=== PATIENT | male | born 1990 | race Caucasian/White ===

== ENCOUNTER 2019-05-04 07:43 | Outpatient (CLI) | payer BC ==
--- NOTE | 2019-05-04 10:57 | MRI ---
MRI LEFT KNEE PERFORMED WITHOUT CONTRAST ENHANCEMENT: Date: 05/04/2019 HISTORY: Twisted knee on 04/26/2019. FINDINGS: There is a complete proximal ACL tear present. The posterior cruciate ligament is intact. Medial meniscus is normal in shape and appearance. There is a more radially oriented tear extending t hrough the posterior horn of the medial meniscus. This is more of an obliquely oriented radial tear. There is some minimal meniscal subluxation. Tear appears to extend to the peripheral red zone and is near the level of the meniscal root. There are edema changes superficial and deep to the MCL. There is a complete tear of some of the ante rior most superficial fibers extending anterior as more of a capsular tear. The edema change in the d eep portion of the MCL is associated with a tear of the meniscal femoral ligament. Meniscal tibial li gament is intact. Lateral collateral ligament is intact. There is a nondisplaced fibular head fracture and bone contusi on of the adjacent tibia. This is associated with edema change in the region of the MPFL, but this ap pears to be intact. Posterior tibial bone contusions are seen, as well as the typical lateral femoral condyle contusion. IMPRESSION: 1. Complete proximal ACL tear. 2. Large radially oriented tear through the posterior horn of the lateral meniscus near the meniscal root. The root component of this tear is displaced somewhat superiorly. There is a focal 4-5 mm near full thickness chondral defect in the posterior articular surface of the lateral femoral condyle ass ociated with this. 3. Edema changes and a tear of the far anterior fibers of the superficial portion of the MCL extendi ng into the medial patellar retinaculum or medial capsule region. Edema changes deep to the MCL are s een and there is a meniscal femoral ligament tear. Meniscal tibial ligament is intact. 4. Fibular head fracture. POS: TPC
== END 2019-05-04 07:44 | disposition home or self-care (01) ==
LOC: TBSIIMAG 07:43 → EDBD 08:00
PROVIDERS: ATTEND Orthopaedic Surgery
DX: M23.92 Unspecified internal derangement of left knee (principal); S83.512A Sprain of anterior cruciate ligament of left knee, initial encounter; S83.412A Sprain of medial collateral ligament of left knee, initial encounter; S83.282A Other tear of lateral meniscus, current injury, left knee, initial encounter; R60.0 Localized edema; S82.832A Other fracture of upper and lower end of left fibula, initial encounter for closed fracture

== ENCOUNTER 2019-06-06 05:48 | Observation (INO) | payer BC ==
[2019-06-05 08:41] VITALS: BMI 31.4
[2019-06-06] MEDS ORDERED: Midazolam HCl 2 mg/2 ml Vial ONE ×2 (06:40→07:50)
[2019-06-06] MEDS ORDERED: Fentanyl 100 MCG/2 ML VIAL ONE ×4 (06:40→10:19)
[2019-06-06] MEDS ORDERED: Dexamethasone 4 mg/ml Vial ONE (06:59)
[2019-06-06] MEDS ORDERED: Morphine 4 MG/ML VIAL SLOW IVP PRN (07:53)
[2019-06-06] MEDS ORDERED: Milk Of Magnesia 30 ML UDCUP PO PRN (07:53)
[2019-06-06] MEDS ORDERED: Morphine 2 MG/ML SYRINGE SLOW IVP PRN (07:53)
[2019-06-06] MEDS ORDERED: Ondansetron PF 4 MG/2 ML Vial IVP PRN (07:53)
[2019-06-06] MEDS ORDERED: Methocarbamol 500 MG TAB PO PRN (07:53)
[2019-06-06] MEDS ORDERED: HYDROcodone/Acetaminophen 7.5/325 mg Tablet PO PRN (07:53)
[2019-06-06] MEDS ORDERED: traMADol HCl 50 MG TAB PO PRN (07:53)
[2019-06-06] MEDS ORDERED: diphenhydrAMINE 50 MG CAP PO PRN (07:53)
[2019-06-06] MEDS ORDERED: Bisacodyl 10 MG SUPP PR PRN (07:53)
[2019-06-06] MEDS ORDERED: Acetaminophen 500 MG TAB PO PRN (07:53)
[2019-06-06] MEDS ORDERED: Meperidine HCl/PF 25 MG/ML VIAL ONE (09:39)
[2019-06-06] MEDS ORDERED: Labetalol HCl 100 MG/20 ML VIAL ONE (09:44)
--- NOTE | 2019-06-06 10:39 | OP ---
DATE OF PROCEDURE: 06/06/2019 PREOPERATIVE DIAGNOSES: Left knee anterior cruciate ligament tear and lateral meniscus tear. POSTOPERATIVE DIAGNOSES: Left knee anterior cruciate ligament tear and lateral meniscus tear. PROCEDURES PERFORMED: 1. Left knee exam under anesthesia. 2. Left knee arthroscopy with partial lateral meniscectomy. 3. Arthroscopically assisted anterior cruciate ligament reconstruction using autologous patellar tendon graft. WAXER OPERATOR: Les Rajput PA-C ESTIMATED BLOOD LOSS: Minimal. COMPLICATIONS: None. ANESTHESIA: The patient did have a general anesthetic as well as a preoperative block. DISPOSITION: He went to recovery room in stable condition. IMPLANTS: 7 x 25 metal interference screw on the femur. We used a bicortical screw with a smooth washer on the tibia. INDICATIONS: This is a 28-year-old male, [facility] [place] and was found to have an ACL tear, significant bruising, some damage to his femoral condyle on the lateral side and a lateral meniscus tear. At this time, he opted to have surgery. DESCRIPTION OF PROCEDURE: After all appropriate consent forms were explained and signed, he was taken to the operative time and at this time was given general anesthetic. Once the level of anesthesia was appropriate, the patient had an exam under anesthesia, confirmed a positive Marbella's and positive pivot shift. He was stable to varus and valgus and a negative posterior drawer. At this time, tourniquet was placed on left thigh. Leg was then placed in arthroscopic leg harding. The limb was then prepped and draped in standard surgical fashion. The limb was then exsanguinated, tourniquet was taken up to 300 mmHg. A 10 blade was used to incise down through skin. Bovie was used to coagulate any brisk venous bleeding. New blade was used to take the paratenon off the underlying patellar tendon and at this time, a central third patellar tendon graft was harvested using a double 10 blade saw and osteotome. This was taken to the back table and made so that both bone plugs were size 10. The graft site was closed loosely with multiple Vicryl sutures. Inferolateral portal was established. Scope was placed into the knee joint. Needle localization technique was then used to make a medial working portal. Diagnostic arthroscopy commenced in the notch. The ACL was found to be torn. There was a chunk of cartilage, which was pulled off with the ligament, which was flipped and scarred down into the fat pad as well. At this time, all this remnant was removed with the shaver. Patellofemoral joint was in good condition. The medial compartment was evaluated and found to be intact. The lateral compartment showed there to be some grade 2 chondromalacia on the femur. There were no unstable chondral flaps. Tibial plateau was in good condition. The lateral meniscus had a small radial tear in the body. Partial lateral meniscectomy was performed using meniscal biter and shaver. The patient then had an unusual tear of the posterior horn about a centimeter from the tibial insertion of the posterior horn. There was a radial tear, which was essentially full thickness and the small piece of meniscus that was still attached to the posterior horn was obviously stable, not going anywhere, but surprisingly the posterior horn of the lateral meniscus upon probing was also found to be stable and intact and not going anywhere. Again, I thought this was quite unusual as normally the remaining meniscus to be completely unstable secondary to this root tear, but it was not and therefore, it was felt that putting sutures in this really would not help the patient clinically, so this was just left alone was debrided, just to promote some more bleeding in this area, and left alone. At this time, notchplasty was performed and once this was done, the knee was flexed up and through the medial portal, a pin was placed up and out the anterolateral thigh. We then reamed a 10 mm Baring reamer to a depth of 30 over top of this. At this time, all loose bony cartilaginous debris was removed from the knee joint. We then went ahead and drilled our tibial side. The guide was set into the knee at 52.5 degrees. A pin was placed up into the knee and into the remnant of the ACL insertion on the tibia in its center part. We then used a 10 mm reamer to ream our tibial tunnel. All loose bony cartilaginous debris was again removed from the knee joint, and the edges were smoothed off with a rasp and a saulo. At this time, we went dry. The knee was flexed up. The pin was placed up and out the anterolateral thigh. Again, it was used to pull our passing suture into the knee joint. This was pulled down the tibial tunnel, and we then used this to pull up our graft up into the knee. A 7 x 25 metal interference screw was then used to fixate our femoral side. We then drilled, tapped, and placed a bicortical screw with a smooth washer, tying our strings around this in full extension and a posterior drawer being applied. At this time, the knee was taken through full range of motion, was found to have 5 degrees of hyperextension and was found to have full flexion with no graft impingement under direct visualization. The camera was removed. The knee was drained. At this time, we then cut our strings. We then bone grafted our patellar and tibial defect sites. We then ran a Vicryl to close our paratenon, 2-0 Vicryl and paul to close the skin. Bulky sterile dressing was applied. Tourniquet was let down. Toes pinked up nicely. The patient was then awakened, and he was taken to recovery room in stable condition. All counts were correct at the end of the case and he did receive preoperative IV antibiotics. Job ID: [id number]
[2019-06-06] MEDS: Dextrose 5 %-0.45 % NaCl 1,000 ML IV SCH ×2 (11:00→18:02)
[2019-06-06] MEDS: Ketorolac Tromethamine 30 MG/ML VIAL IVP SCH ×3 (12:23→23:29)
[2019-06-06] MEDS: Famotidine 20 MG TAB PO SCH ×2 (12:41→20:01)
[2019-06-06] MEDS ORDERED: Ropivacaine 0.5% HCl/PF (150 MG/30 ML VIAL) ONE (13:06)
[2019-06-06] MEDS ORDERED: Bupivacaine HCl 0.5%/Epinephrine 1:200,000/PF 30 ml Vial ONE (13:06)
[2019-06-06] MEDS ORDERED: Dexamethasone 20 MG/5 ML VIAL ONE (13:06)
[2019-06-06] MEDS ORDERED: Lidocaine 1% PF 5 ML VIAL ONE (13:06)
[2019-06-06] MEDS ORDERED: PROPOFOL 200 MG/20 ML VIAL ONE (13:06)
[2019-06-06] MEDS: CEFAZOLIN 2 GM in Premix Bag 1 BAG IVPB SCH ×2 (14:49→21:29)
[2019-06-06] MEDS: HYDROcodone/Acetaminophen 7.5/325 mg Tablet PO PRN (21:28)
[2019-06-07] MEDS: Dextrose 5 %-0.45 % NaCl 1,000 ML IV SCH (04:43)
[2019-06-07] MEDS: Ketorolac Tromethamine 30 MG/ML VIAL IVP SCH (05:45)
[2019-06-07 07:15] VITALS: BP 129/74; TEMP 97.9
[2019-06-07] MEDS: HYDROcodone/Acetaminophen 7.5/325 mg Tablet PO PRN (09:09)
[2019-06-07] MEDS: Famotidine 20 MG TAB PO SCH (09:09)
== END 2019-06-07 10:13 | disposition home or self-care (01) ==
LOC: EDBD → SDC 05:48 → SURG A 07:56
PROVIDERS: ADMIT Orthopaedic Surgery; ATTEND Orthopaedic Surgery
PROC: 0SBD4ZZ Excision of Left Knee Joint, Percutaneous Endoscopic Approach (ICD-10-PCS; principal; 2019-06-06)
PROC: 0MRP47Z Replacement of Left Knee Bursa and Ligament with Autologous Tissue Substitute, Percutaneous Endoscopic Approach (ICD-10-PCS; 2019-06-06)
PROC: 3E0T3BZ Introduction of Anesthetic Agent into Peripheral Nerves and Plexi, Percutaneous Approach (ICD-10-PCS; 2019-06-06)
PROC: 3E0T3BZ Introduction of Anesthetic Agent into Peripheral Nerves and Plexi, Percutaneous Approach (ICD-10-PCS; 2019-06-06)
DX: S83.512A Sprain of anterior cruciate ligament of left knee, initial encounter (principal); S83.282A Other tear of lateral meniscus, current injury, left knee, initial encounter; M94.28 Chondromalacia, other site; G89.18 Other acute postprocedural pain; F17.200 Nicotine dependence, unspecified, uncomplicated; X58.XXXA Exposure to other specified factors, initial encounter; Y92.830 Public park as the place of occurrence of the external cause
CPT/HCPCS: 96361; 96365; 96375; 96376; C1713; G0378; J0670; J0690; J1100; J1885; J2001; J2175; J2250; J2704; J2795; J3010